=== PATIENT | female | born 1970 | race Caucasian/White ===

== ENCOUNTER 2021-05-04 22:02 | Emergency (ER) | payer OTHER ==
[~2021-05-04] VITALS: Ht 167.6 cm; Wt 75.3 kg
[2021-05-05 02:35] LABS: MPV 7.9 fl. (7.2-11.1)
[2021-05-05 02:39] LABS: WBC 7.4 thou/uL (4.0-11.0)
[2021-05-05 02:42] LABS: ABSOLUTE EOSINOPHILS 0.1 thou/uL (0.0-0.7); ABSOLUTE LYMPHOCYTES 2.7 thou/uL (0.8-5.3); ABSOLUTE MONOCYTES 0.6 thou/uL (0.0-1.2); BASOPHILS 0.5 %; EOSINOPHILS 1.3 %; HEMATOCRIT 38.5 % (37.0-47.0); HEMOGLOBIN 13.3 gm/dL (12.0-15.0); LYMPHOCYTES 36.6 %; MCH 31.6 pg (26.0-34.0); MCHC 34.5 g/dL (28.0-37.0); MCV 91.5 fL (80.0-100.0); MONOCYTES 7.7 %; NUCLEATED RBCS 0 /100WBC; PLATELET COUNT* 318 thou/uL (150-400); POLYS 53.9 %; RBC 4.21 mil/uL (4.20-5.00); RDW-CV 11.8 % (10.5-14.5)
[2021-05-05 02:46] LABS: CALCIUM 8.3 mg/dL (8.5-10.1); CREATININE 0.8 mg/dL (0.6-1.3); POTASSIUM 3.3 mmol/L (3.5-5.1)
[2021-05-05] MEDS ORDERED: PREDNISONE50 MG PO (05:31)
[2021-05-05] MEDS ORDERED: PROAIR HFA8.5 GM INH (05:31)
[2021-05-05 05:46] VITALS: BP 150/77
--- NOTE | 2021-05-05 12:19 | EKG ---
[place] [address] ELECTROCARDIOGRAM REPORT Name: ISATU CHIN ASA [id number] Admission: 05/04/21 Attend Phys: Discharge: 05/05/21 Date of : 70 Date of Service: 05/04/212210 Report #: [id number] THIS REPORT FOR: //name// [facility] ED Test Date: 2021-05-04 Test Time: 22:11:47 Pat Name: ISATU CHIN Department: Room: Gender: F [employer] Sergeant: [place] : 1970 Requested By: Almita Elizabeth Order Number: [id number] MD: Federico Stanford Measurements Intervals [place] Rate: 66 P: 73 MS: 154 QRS: 44 QRSD: 90 T: 34 QT: 420 QTc: 441 Interpretive Statements Sinus rhythm Low voltage, extremity leads No previous ECG available for comparison Electronically Signed On 05-05-2021 12:19:13 [employer]YSICAL EDUCATION TEACHER by Federico Stanford [email or web address] <ELECTRONICALLY SIGNED> By: Federico Stanford MD, [facility] 05/05/21 1219 10 10 Federico Stanford MD, [facility] /EPI
== END 2021-05-05 05:47 | disposition home or self-care (01) ==
LOC: M.ERS 22:02
PROVIDERS: Emergency Medicine
DX: R09.1 Pleurisy (principal); Z91.040 Latex allergy status